=== PATIENT | male | born 1995 | race Caucasian/White ===

== ENCOUNTER 2019-08-09 09:01 | Emergency (ER) | payer BC ==
[~2019-08-09] VITALS: Ht 170.2 cm; Wt 104.5 kg
[2019-08-09 09:08] VITALS: TEMP 97.9
[2019-08-09] MEDS ORDERED: CRUTCHES MC (09:54)
[2019-08-09 10:29] VITALS: BP 139/78; PULSE 77
== END 2019-08-09 10:32 | disposition home or self-care (01) ==
LOC: COL.ER 09:01
DX: S82.64XA Nondisplaced fracture of lateral malleolus of right fibula, initial encounter for closed fracture (principal); Y92.009 Unspecified place in unspecified non-institutional (private) residence as the place of occurrence of the external cause; X50.1XXA Overexertion from prolonged static or awkward postures, initial encounter; W01.0XXA Fall on same level from slipping, tripping and stumbling without subsequent striking against object, initial encounter